=== PATIENT | male | born 1985 | race African-American/Black ===

== ENCOUNTER 2017-05-25 11:33 | Emergency (ER) | payer SELFPAY ==
[2017-05-25] MEDS ORDERED: Dexamethasone 20 MG/5 ML VIAL ONE (12:02)
[2017-05-25] MEDS ORDERED: Ketorolac Tromethamine 60 MG/2 ML VIAL ONE (12:02)
== END 2017-05-25 12:40 | disposition home or self-care (01) ==
LOC: NAV ERS 11:33
DX: B34.9 Viral infection, unspecified (principal); I10 Essential (primary) hypertension
CPT/HCPCS: 87081; 87430; 96372; J1100; J1885